=== PATIENT | female | born 1940 | race Two or more races ===

== ENCOUNTER 2020-03-02 19:13 | Emergency (ER) | payer MEDICARE, MEDICAID | END 2020-03-02 19:31 | disposition left against medical advice (07) | LOC: ER 19:14 | DX: M79.672 Pain in left foot (principal); Z53.21 Procedure and treatment not carried out due to patient leaving prior to being seen by health care provider ==

== ENCOUNTER 2022-02-18 18:17 | Emergency (ER) | payer MEDICARE, MEDICAID ==
[~2022-02-18] VITALS: Ht 154.9 cm; Wt 56.2 kg
[2022-02-18 18:39] VITALS: BP 195/95
[2022-02-18] MEDS ORDERED: SODIUM CHLORIDE 0.9% 1,000 ML IV ONE (20:00)
[2022-02-18] MEDS ORDERED: DONNATAL 5ml ORAL Elix (BELLADONNA ALK-PHENOBARB) PO ONE (20:15)
[2022-02-18] MEDS ORDERED: LIDOCAINE VISCOUS 2% 15ML UD PO ONE (20:15)
[2022-02-18] MEDS ORDERED: ALUM & MAG HYDROX-SIMETH LIQ(MAALOX) 30 ML PO ONE (20:15)
[2022-02-18 20:31] LABS: Basophils # (auto) 0.1 10 ^3/uL (0-0.2); Basophils % (auto) 0.7 % (0.0-2.0); Eosinophils # (auto) 0.7 10 ^3/uL (0-0.8); Hematocrit 31.2 % (36.0-46.0); Hemoglobin 10.5 g/dL (12.2-16.2); Lymphocytes # (auto) 2.5 10 ^3/uL (0.4-5.4); Lymphocytes % (auto) 33.8 % (10.0-50.0); Mean Corpuscular Hemoglobin 31.3 pg (28.0-32.0); Mean Corpuscular Hgb Conc. 33.5 g/dL (32.0-36.0); Mean Corpuscular Volume 93.3 fL (80.0-100.0); Monocytes # (auto) 0.6 10 ^3/uL (0-1.3); Monocytes % (auto) 8.2 % (0.0-12.0); Neutrophils # (auto) 3.6 10 ^3/uL (1.6-8.6); Neutrophils % (auto) 48.3 % (37.0-80.0); Red Blood Cells 3.35 10^6/uL (4.0-5.20); Red Cell Distribution Width 13.5 % (11.8-14.3); White Blood Cell 7.5 10^3/uL (4.4-10.8)
[2022-02-18 20:32] LABS: Urine Bacteria NONE SEEN /hpf (None Seen); Urine Blood Negative /uL (Negative); Urine Specific Gravity 1.016 (1.001-1.035); Urine WBC 1 /hpf (0 - 5)
[2022-02-18] MEDS ORDERED: IOHEXOL 350 MG/ML 100ML IJ ONE (20:33)
[2022-02-18 20:50] LABS: Albumin 3.8 g/dL (3.4-5.0); Calcium 9.1 mg/dL (8.5-10.1); Potassium 4.7 mmol/L (3.5-5.1)
[2022-02-18 20:54] LABS: Bilirubin, Total 0.3 mg/dL (0.2-1.0); Total Protein 7.6 g/dL (6.4-8.2)
[2022-02-18] MEDS ORDERED: FAMO-161 PO (22:28)
== END 2022-02-18 23:39 | disposition home or self-care (01) ==
LOC: ER 18:17
DX: R10.11 Right upper quadrant pain (principal)
CPT/HCPCS: 36415; 74176; 76705; 80053; 81001; 82150; 83605; 83690; 85025; 93005; 99285; Q9967

== ENCOUNTER 2023-02-12 12:06 | Emergency (ER) | payer MEDICARE, MEDICAID ==
[~2023-02-12] VITALS: Ht 162.6 cm; Wt 54.1 kg
[~2023-02-12 12:06] MED LIST: FAMO-161 PO
[2023-02-12] MEDS ORDERED: cloNIDine HCL 0.1 MG TAB PO ONE (12:15)
[2023-02-12 13:30] LABS: Basophils # (auto) 0.1 10 ^3/uL (0-0.2); Basophils % (auto) 0.9 % (0.0-2.0); Eosinophils # (auto) 0.4 10 ^3/uL (0-0.8); Hematocrit 32.7 % (36.0-46.0); Hemoglobin 10.8 g/dL (12.2-16.2); Lymphocytes # (auto) 2.9 10 ^3/uL (0.4-5.4); Lymphocytes % (auto) 34.5 % (10.0-50.0); Mean Corpuscular Hemoglobin 29.8 pg (28.0-32.0); Mean Corpuscular Hgb Conc. 32.9 g/dL (32.0-36.0); Mean Corpuscular Volume 90.5 fL (80.0-100.0); Monocytes # (auto) 0.8 10 ^3/uL (0-1.3); Monocytes % (auto) 9.3 % (0.0-12.0); Neutrophils # (auto) 4.2 10 ^3/uL (1.6-8.6); Neutrophils % (auto) 50.3 % (37.0-80.0); Nucleated Red Blood Cells % 0.1 %; Red Blood Cells 3.61 10^6/uL (4.0-5.20); Red Cell Distribution Width 14.8 % (11.8-14.3); White Blood Cell 8.4 10^3/uL (4.4-10.8)
[2023-02-12 13:49] LABS: Albumin 3.8 g/dL (3.4-5.0); BUN/Creatinine Ratio 17.7 (10.0-20.0); Calcium 8.9 mg/dL (8.5-10.1); Potassium 4.3 mmol/L (3.5-5.1)
[2023-02-12 13:51] LABS: Bilirubin, Total 0.4 mg/dL (0.2-1.0); Total Protein 6.9 g/dL (6.4-8.2)
[2023-02-12 14:58] VITALS: BP 122/63
[2023-02-12] MEDS ORDERED: ENOXAPARIN SOD 60 MG/0.6 ML SYRINGE SC ONE (17:00)
[2023-02-12] MEDS ORDERED: hydrALAZINE HCL 20 MG/ML VL IV PRN (22:30)
[2023-02-12] MEDS ORDERED: ACETAMINOPHEN 325 MG TAB PO PRN (22:30)
[2023-02-12] MEDS ORDERED: ONDANSETRON HCL 4 MG/2 ML VIAL IV PRN (22:30)
[2023-02-12] MEDS ORDERED: DOCUSATE SOD 100 MG CAP PO PRN (22:30)
[2023-02-12] MEDS ORDERED: SOD CHL 0.45% 1,000 ML IV SCH (22:30)
[2023-02-12] MEDS ORDERED: HYDROcodone-ACET 5/325MG TAB PO PRN (22:30)
[2023-02-13] MEDS ORDERED: ASPirin 81 mg TAB PO SCH (10:00)
[2023-02-13] MEDS ORDERED: ATORVASTATIN 20 MG TAB PO SCH (22:00)
== END 2023-02-13 00:51 | disposition home or self-care (01) ==
LOC: ER 12:06
DX: I24.9 Acute ischemic heart disease, unspecified (principal); I10 Essential (primary) hypertension; E11.9 Type 2 diabetes mellitus without complications
CPT/HCPCS: 36415; 80053; 84484; 85025; 99291

== ENCOUNTER 2024-05-17 17:55 | Emergency (ER) | payer MEDICARE, MEDICAID ==
[~2024-05-17] VITALS: Ht 152.4 cm; Wt 59.0 kg
[2024-05-17] MEDS ORDERED: BACDST PO (18:25)
[2024-05-17 22:20] VITALS: BP 139/51; PULSE 75; RESP 18; TEMP 98.3; O2SAT 93
[2024-05-17] MEDS: SULFAMETHOX W/TRIMETH(800/160MG) DS TAB PO ONE (22:22)
== END 2024-05-17 22:57 | disposition home or self-care (01) ==
LOC: ER 17:55
DX: L03.032 Cellulitis of left toe (principal); M19.90 Unspecified osteoarthritis, unspecified site; E78.5 Hyperlipidemia, unspecified; I10 Essential (primary) hypertension

== ENCOUNTER 2024-05-20 12:04 | Inpatient (IN) | payer MEDICARE, MEDICAID ==
[~2024-05-20] VITALS: Ht 152.4 cm; Wt 52.5 kg
[~2024-05-20 12:04] MED LIST changes: +BACDST PO
[2024-05-20 13:34] LABS: Basophils # (auto) 0 10 ^3/uL (0-0.2); Basophils % (auto) 0.3 % (0.0-2.0); Eosinophils # (auto) 0.1 10 ^3/uL (0-0.8); Eosinophils % (auto) 0.9 % (0.0-7.0); Hematocrit 28.1 % (36.0-46.0); Hemoglobin 9.3 g/dL (12.2-16.2); Lymphocytes # (auto) 1.1 10 ^3/uL (0.4-5.4); Lymphocytes % (auto) 7.3 % (10.0-50.0); Mean Corpuscular Hemoglobin 31.1 pg (28.0-32.0); Mean Corpuscular Hgb Conc. 33.1 g/dL (32.0-36.0); Monocytes # (auto) 1.2 10 ^3/uL (0-1.3); Monocytes % (auto) 8.2 % (0.0-12.0); Neutrophils # (auto) 12.4 10 ^3/uL (1.6-8.6); Neutrophils % (auto) 83.3 % (37.0-80.0); Nucleated Red Blood Cells % 0.1 %; Red Blood Cells 2.99 10^6/uL (4.0-5.20); Red Cell Distribution Width 13.6 % (11.8-14.3); White Blood Cell 14.9 10^3/uL (4.4-10.8)
[2024-05-20] MEDS: SODIUM CHLORIDE 0.9% 1,000 ML IV ONE (13:50)
[2024-05-20] MEDS: ONDANSETRON HCL 4 MG/2 ML VIAL IV ONE (13:56)
[2024-05-20 14:06] VITALS: PULSE 65; RESP 14; O2SAT 95
[2024-05-20 14:23] LABS: Alanine Aminotransferase 13 U/L (7-40); Albumin 4.2 g/dL (3.2-4.8); Alkaline Phosphatase 87 U/L (46-116); Anion Gap 5 (5-15); Aspartate Aminotransferase 21 U/L (13-40); BUN/Creatinine Ratio 15.7 (10.0-20.0); Bilirubin, Total 0.3 mg/dL (0.2-1.0); Blood Urea Nitrogen 32 mg/dL (9-23); Calcium 9.1 mg/dL (8.7-10.4); Carbon Dioxide 20 mmol/L (20-30); Chloride 109 mmol/L (98-107); Glucose 107 mg/dL (74-106); Sodium 134 mmol/L (136-145); Total Protein 6.5 g/dL (5.7-8.2)
[2024-05-20] MEDS: ALBUTEROL SULF 2.5 MG/0.5ML(0.5%) NEB SOLN NEB ONE (15:02)
[2024-05-20 15:15] VITALS: PULSE 82; RESP 13; O2SAT 93
[2024-05-20] MEDS: FUROSEMIDE 20 MG/2 ML VIAL IV ONE (15:38)
[2024-05-20] MEDS: DEXTROSE (50%) 50ML SYRG IV ONE (15:39)
[2024-05-20] MEDS: InsuLIN REG 1unit/0.01ml Soln (100units/ml) IV ONE (15:44)
[2024-05-20] MEDS: ASPirin 81 mg TAB PO ONE (16:09)
[2024-05-20] MEDS: NITROGLYCERIN 0.4 MG SL TAB SL ONE (16:10)
[2024-05-20] MEDS ORDERED: MORPHINE SULFATE INJ 2 MG/ml SYRG IV PRN ×3 (17:00→17:15)
[2024-05-20] MEDS ORDERED: DEXTROSE (50%) 50ML SYRG IV PRN (17:00)
[2024-05-20] MEDS ORDERED: DOCUSATE SOD 100 MG CAP PO PRN ×2 (17:00→17:15)
[2024-05-20] MEDS ORDERED: PANTOPRAZOLE 40 MG/10 ML VIAL INJ IV ONE (17:00)
[2024-05-20] MEDS ORDERED: SODIUM CHLORIDE 0.9% 1,000 ML IV SCH (17:00)
[2024-05-20] MEDS ORDERED: PIPERACILLIN-TAZOB 3.375GM 100 ML IV ONE (17:00)
[2024-05-20] MEDS ORDERED: ENOXAPARIN SOD 40 MG/0.4 ML SYRINGE SC SCH ×2 (17:00→17:15)
[2024-05-20] MEDS ORDERED: ONDANSETRON HCL 4 MG/2 ML VIAL IV PRN (17:00)
[2024-05-20] MEDS ORDERED: NITROGLYCERIN 0.4 MG SL TAB SL PRN ×2 (17:00→17:15)
[2024-05-20] MEDS ORDERED: InsuLIN REG 1unit/0.01ml Soln (100units/ml) SC SCH (18:00)
[2024-05-20] MEDS: InsuLIN REG 1unit/0.01ml Soln (100units/ml) SC SCH (18:00)
[2024-05-20] MEDS ORDERED: PIPERACILLIN-TAZOB 3.375GM 100 ML IV SCH (18:00)
[2024-05-20] MEDS ORDERED: ACCU-CHEK COMFORT CURVE STRIP VI SCH (18:00)
[2024-05-20] MEDS: PIPERACILLIN-TAZOB 3.375GM 100 ML IV ONE (18:21)
[2024-05-20] MEDS: PANTOPRAZOLE 40 MG/10 ML VIAL INJ IV ONE (18:21)
[2024-05-20] MEDS: ACCU-CHEK COMFORT CURVE STRIP VI SCH (18:21)
[2024-05-20] MEDS: SODIUM CHLORIDE 0.9% 1,000 ML IV SCH (18:21)
[2024-05-20 19:18] LABS: Potassium 4.3 mmol/L (3.5-5.1)
[2024-05-20 19:25] LABS: Magnesium 2.1 mg/dL (1.6-2.6)
[2024-05-20 19:26] LABS: % Iron Saturation 7.9 % (15-50); Phosphorus 3.5 mg/dL (2.4-5.1)
[2024-05-20 19:36] LABS: INR 0.94 (0.9-1.15)
[2024-05-20 19:54] LABS: Folate (Folic Acid) 8.74 ng/mL (>5.38)
[2024-05-20 20:00] VITALS: PULSE 92
[2024-05-20 21:00] VITALS: BP 105/33; PULSE 88; RESP 17; TEMP 99.2; O2SAT 92
[2024-05-20] MEDS ORDERED: LEVO112T4 PO (22:48)
[2024-05-20] MEDS ORDERED: ALBUAER3 IN (22:48)
[2024-05-20] MEDS ORDERED: LOSA-535 PO (22:48)
[2024-05-21] VITALS (7 sets, daily range): BP systolic 125–144; BP diastolic 32–67; PULSE 69–77; RESP 16–18; TEMP 98.1–98.7; O2SAT 93–97
[2024-05-21] MEDS: PIPERACILLIN-TAZOB 3.375GM 100 ML IV SCH (05:26)
[2024-05-21 05:55] LABS: Basophils # (auto) 0 10 ^3/uL (0-0.2); Basophils % (auto) 0.2 % (0.0-2.0); Eosinophils # (auto) 0.2 10 ^3/uL (0-0.8)
[2024-05-21 05:59] LABS: Hematocrit 23.5 % (36.0-46.0); Hemoglobin 8.1 g/dL (12.2-16.2); Lymphocytes # (auto) 1.3 10 ^3/uL (0.4-5.4); Lymphocytes % (auto) 14.3 % (10.0-50.0); Mean Corpuscular Hemoglobin 32.2 pg (28.0-32.0); Mean Corpuscular Hgb Conc. 34.5 g/dL (32.0-36.0); Mean Corpuscular Volume 93.5 fL (80.0-100.0); Monocytes # (auto) 0.9 10 ^3/uL (0-1.3); Monocytes % (auto) 9.7 % (0.0-12.0); Neutrophils # (auto) 6.9 10 ^3/uL (1.6-8.6); Neutrophils % (auto) 73.8 % (37.0-80.0); Red Blood Cells 2.51 10^6/uL (4.0-5.20); Red Cell Distribution Width 13.4 % (11.8-14.3); White Blood Cell 9.3 10^3/uL (4.4-10.8)
[2024-05-21 06:14] LABS: Alanine Aminotransferase 11 U/L (7-40); Alkaline Phosphatase 78 U/L (46-116); Anion Gap 6 (5-15); Aspartate Aminotransferase 15 U/L (13-40); BUN/Creatinine Ratio 14.8 (10.0-20.0); Blood Urea Nitrogen 27 mg/dL (9-23); Calcium 8.6 mg/dL (8.7-10.4); Carbon Dioxide 21 mmol/L (20-30); Chloride 111 mmol/L (98-107); Glucose 82 mg/dL (74-106); Potassium 4.6 mmol/L (3.5-5.1); Sodium 138 mmol/L (136-145)
[2024-05-21 06:15] LABS: Albumin 3.7 g/dL (3.2-4.8)
[2024-05-21 06:16] LABS: Bilirubin, Total 0.3 mg/dL (0.2-1.0); Total Protein 5.7 g/dL (5.7-8.2)
[2024-05-21] MEDS ORDERED: PANTOPRAZOLE 40 MG/10 ML VIAL INJ IV SCH (10:00)
[2024-05-21] MEDS: PANTOPRAZOLE 40 MG/10 ML VIAL INJ IV SCH (10:10)
[2024-05-21] MEDS: ENOXAPARIN SOD 30 MG/0.3 ML SYRINGE SC SCH (10:11)
[2024-05-21] MEDS: ONDANSETRON HCL 4 MG/2 ML VIAL IV PRN (10:11)
[2024-05-21] MEDS: DEXTROSE (50%) 50ML SYRG IV PRN (17:57)
[2024-05-21] MEDS: D5W/SOD CHLO 0.9% 1,000 ML IV SCH (18:41)
[2024-05-21] MEDS ORDERED: DEXTROSE (50%) 50ML SYRG IV PRN (19:00)
[2024-05-21] MEDS: InsuLIN REG 1unit/0.01ml Soln (100units/ml) SC SCH (20:00)
[2024-05-21] MEDS: ACCU-CHEK COMFORT CURVE STRIP VI SCH (20:21)
[2024-05-21 23:52] LABS: Urine Bacteria None Seen /hpf (None Seen)
[2024-05-22] VITALS (7 sets, daily range): BP systolic 117–158; BP diastolic 49–66; PULSE 60–80; RESP 16–18; TEMP 98.1–99; O2SAT 97–99
[2024-05-22 00:01] LABS: Urine Blood Negative /uL (Negative); Urine Clarity Clear (Clear); Urine Color Light-Yellow (Yellow); Urine Protein, UAD TRACE (Negative); Urine Specific Gravity 1.016 (1.001-1.035); Urine Urobilinogen Normal (Negative); Urine WBC <1 /hpf (0 - 5)
[2024-05-22 00:12] LABS: Creatinine, Urine 65.63 mg/dL (30.0-125.0)
[2024-05-22 02:45] LABS: Protein, Urine 31.8 mg/dL (0.0-11.9)
[2024-05-22 06:19] LABS: Chloride 114 mmol/L (98-107); Potassium 4.2 mmol/L (3.5-5.1); Sodium 140 mmol/L (136-145)
[2024-05-22 06:20] LABS: Anion Gap 6 (5-15); Carbon Dioxide 20 mmol/L (20-30)
[2024-05-22 06:21] LABS: Calcium 8.6 mg/dL (8.7-10.4)
[2024-05-22 06:25] LABS: BUN/Creatinine Ratio 13.5 (10.0-20.0); Blood Urea Nitrogen 19 mg/dL (9-23); Glucose 93 mg/dL (74-106)
[2024-05-22] MEDS: MORPHINE SULFATE INJ 2 MG/ml SYRG IV PRN (21:40)
[2024-05-23] VITALS (7 sets, daily range): BP systolic 110–156; BP diastolic 38–62; PULSE 62–84; RESP 16–21; TEMP 36.7; O2SAT 96–100
[2024-05-23 06:48] LABS: Eosinophils # (auto) 0.6 10 ^3/uL (0-0.8); Hematocrit 24.1 % (36.0-46.0); Monocytes # (auto) 0.6 10 ^3/uL (0-1.3); Neutrophils # (auto) 3.4 10 ^3/uL (1.6-8.6); Nucleated Red Blood Cells % 0.1 %; Red Blood Cells 2.58 10^6/uL (4.0-5.20)
[2024-05-23 06:50] LABS: Basophils # (auto) 0.1 10 ^3/uL (0-0.2); Eosinophils % (auto) 10.9 % (0.0-7.0); Hemoglobin 8.4 g/dL (12.2-16.2); Lymphocytes # (auto) 1.2 10 ^3/uL (0.4-5.4); Lymphocytes % (auto) 20.9 % (10.0-50.0); Mean Corpuscular Hemoglobin 32.5 pg (28.0-32.0); Mean Corpuscular Hgb Conc. 34.8 g/dL (32.0-36.0); Mean Corpuscular Volume 93.5 fL (80.0-100.0); Monocytes % (auto) 10.1 % (0.0-12.0); Neutrophils % (auto) 57.1 % (37.0-80.0); Red Cell Distribution Width 13.2 % (11.8-14.3); White Blood Cell 5.9 10^3/uL (4.4-10.8)
[2024-05-23 06:56] LABS: Anion Gap 8 (5-15); Carbon Dioxide 18 mmol/L (20-30); Chloride 113 mmol/L (98-107); Potassium 3.9 mmol/L (3.5-5.1); Sodium 139 mmol/L (136-145)
[2024-05-23 06:57] LABS: Calcium 8.6 mg/dL (8.7-10.4)
[2024-05-23 07:02] LABS: BUN/Creatinine Ratio 8.7 (10.0-20.0); Blood Urea Nitrogen 10 mg/dL (9-23); Glucose 91 mg/dL (74-106)
[2024-05-23] MEDS ORDERED: LEVO500T91 PO (11:37)
== END 2024-05-23 17:30 | disposition home or self-care (01) ==
LOC: ER 12:04 → OVERFLOW 16:59 → CENTRAL 19:45
PROVIDERS: ADMIT Nurse Practitioner Family; ATTEND Internal Medicine
DX: K80.00 Calculus of gallbladder with acute cholecystitis without obstruction (principal); N17.0 Acute kidney failure with tubular necrosis; I21.A1 Myocardial infarction type 2; E87.5 Hyperkalemia; I12.9 Hypertensive chronic kidney disease with stage 1 through stage 4 chronic kidney disease, or unspecified chronic kidney disease; D64.9 Anemia, unspecified; E03.9 Hypothyroidism, unspecified; E78.5 Hyperlipidemia, unspecified; D72.829 Elevated white blood cell count, unspecified; N18.32 Chronic kidney disease, stage 3b; L60.8 Other nail disorders; F10.239 Alcohol dependence with withdrawal, unspecified
CPT/HCPCS: 36415; 74176; 76705; 80048; 80053; 81001; 82570; 82607; 82728; 82746; 82962; 83540; 83550; 83605; 83615; 83735; 84100; 84132; 84156; 84300; 84484; 85025; 85045; 85610; 93005; 93306; 93926; 93971; 94640; 96361; 96365; 96375; G0378; J1815; J2405; J2470; J2543; J7042

== ENCOUNTER 2024-06-18 11:24 | Inpatient (IN) | payer MEDICARE, MEDICAID ==
[~2024-06-18] VITALS: Ht 149.9 cm; Wt 55.8 kg
[~2024-06-18 11:24] MED LIST changes: +ALBUAER3 IN; -BACDST PO; +LEVO112T4 PO; +LEVO500T91 PO; +LOSA-535 PO
[2024-06-18 12:47] LABS: Urine Bacteria FEW /hpf (None Seen); Urine Blood Negative /uL (Negative); Urine Clarity Clear (Clear); Urine Protein, UAD Negative (Negative); Urine Specific Gravity 1.006 (1.001-1.035); Urine Sperm PRESENT /hpf (None Seen); Urine Urobilinogen Normal (Negative); Urine WBC <1 /hpf (0 - 5); Urine pH 5.5 (5.0-9.0)
[2024-06-18 12:48] LABS: Basophils # (auto) 0.1 10 ^3/uL (0-0.2); Eosinophils # (auto) 0.5 10 ^3/uL (0-0.8); Eosinophils % (auto) 8.4 % (0.0-7.0); Hematocrit 33.9 % (36.0-46.0); Hemoglobin 11.1 g/dL (12.2-16.2); Lymphocytes # (auto) 2.3 10 ^3/uL (0.4-5.4); Lymphocytes % (auto) 36.7 % (10.0-50.0); Mean Corpuscular Hemoglobin 30.5 pg (28.0-32.0); Mean Corpuscular Hgb Conc. 32.7 g/dL (32.0-36.0); Mean Corpuscular Volume 93.3 fL (80.0-100.0); Monocytes # (auto) 0.6 10 ^3/uL (0-1.3); Monocytes % (auto) 10.1 % (0.0-12.0); Neutrophils # (auto) 2.8 10 ^3/uL (1.6-8.6); Neutrophils % (auto) 43.8 % (37.0-80.0); Platelet Count (auto) 218 10^3/uL (140-450); Red Blood Cells 3.63 10^6/uL (4.0-5.20); Red Cell Distribution Width 12.8 % (11.8-14.3); White Blood Cell 6.4 10^3/uL (4.4-10.8)
[2024-06-18 12:48] LABS: Urine Color Straw (Yellow)
[2024-06-18 13:10] LABS: Albumin 4.6 g/dL (3.2-4.8); Alkaline Phosphatase 94 U/L (46-116); Anion Gap 4 (5-15); Aspartate Aminotransferase 18 U/L (13-40); BUN/Creatinine Ratio 19.5 (10.0-20.0); Bilirubin, Total 0.4 mg/dL (0.2-1.0); Blood Urea Nitrogen 32 mg/dL (9-23); Calcium 9.5 mg/dL (8.7-10.4); Carbon Dioxide 24 mmol/L (20-30); Chloride 107 mmol/L (98-107); Glucose 95 mg/dL (74-106)
[2024-06-18 13:11] LABS: Total Protein 7.2 g/dL (5.7-8.2)
[2024-06-18 13:17] LABS: Alanine Aminotransferase < 9 U/L (7-40); Potassium 5.6 mmol/L (3.5-5.1); Sodium 135 mmol/L (136-145)
[2024-06-18] MEDS: SODIUM BICARB 8.4% 50Meq/50ml SYR INJ IV ONE (14:30)
[2024-06-18] MEDS: ALBUTEROL SULF 2.5 MG/0.5ML(0.5%) NEB SOLN NEB ONE (14:46)
[2024-06-18] MEDS: SODIUM CHLORIDE 0.9% 500 ML IV ONE (14:57)
[2024-06-18] MEDS: SODIUM ZIRCONIUM CYCL 10 GM PAK PO ONE (15:00)
[2024-06-18] MEDS ORDERED: ONDANSETRON HCL 4 MG/2 ML VIAL IV PRN (15:00)
[2024-06-18] MEDS ORDERED: MORPHINE SULFATE INJ 2 MG/ml SYRG IV PRN (15:00)
[2024-06-18] MEDS ORDERED: DOCUSATE SOD 100 MG CAP PO PRN (15:00)
[2024-06-18 15:41] LABS: Magnesium 2.5 mg/dL (1.6-2.6)
[2024-06-18 15:42] LABS: Phosphorus 4.7 mg/dL (2.4-5.1)
[2024-06-18] MEDS: SODIUM CHLORIDE 0.9% 1,000 ML IV SCH (15:43)
[2024-06-18] MEDS: cefTRIAXone 1GM/50ML D5W 50 ML IV ONE (16:10)
[2024-06-18] MEDS ORDERED: NITROGLYCERIN 0.4 MG SL TAB SL PRN (16:15)
[2024-06-18] MEDS: MEGESTROL ACET 400MG/10ML ORAL SUSP PO ONE (16:15)
[2024-06-18 20:00] VITALS: PULSE 62; RESP 15; O2SAT 96
[2024-06-18] MEDS: MEGESTROL ACET 400MG/10ML ORAL SUSP PO SCH (22:00)
[2024-06-18] MEDS: MELATONIN 5 MG TAB PO ONE (22:00)
[2024-06-19 03:07] VITALS: BP 165/69; PULSE 97; RESP 16; TEMP 97.6; O2SAT 97
[2024-06-19 05:00] VITALS: BP 145/51; PULSE 68; RESP 17; TEMP 97.8; O2SAT 96
[2024-06-19] MEDS: LEVOTHYROXINE SODIUM 112 MCG TAB PO SCH (06:31)
[2024-06-19 07:32] LABS: Basophils # (auto) 0 10 ^3/uL (0-0.2); Basophils % (auto) 0.9 % (0.0-2.0); Eosinophils # (auto) 0.4 10 ^3/uL (0-0.8); Eosinophils % (auto) 7.7 % (0.0-7.0); Hematocrit 28.8 % (36.0-46.0); Hemoglobin 9.4 g/dL (12.2-16.2); Lymphocytes # (auto) 1.8 10 ^3/uL (0.4-5.4); Lymphocytes % (auto) 33.6 % (10.0-50.0); Mean Corpuscular Hemoglobin 30.9 pg (28.0-32.0); Mean Corpuscular Hgb Conc. 32.6 g/dL (32.0-36.0); Mean Corpuscular Volume 94.8 fL (80.0-100.0); Monocytes # (auto) 0.5 10 ^3/uL (0-1.3); Monocytes % (auto) 8.5 % (0.0-12.0); Neutrophils # (auto) 2.6 10 ^3/uL (1.6-8.6); Neutrophils % (auto) 49.3 % (37.0-80.0); Nucleated Red Blood Cells % 0.1 %; Platelet Count (auto) 159 10^3/uL (140-450); Red Blood Cells 3.04 10^6/uL (4.0-5.20); White Blood Cell 5.3 10^3/uL (4.4-10.8)
[2024-06-19 08:17] LABS: Alkaline Phosphatase 75 U/L (46-116); Anion Gap 4 (5-15); Aspartate Aminotransferase 16 U/L (13-40); BUN/Creatinine Ratio 16.3 (10.0-20.0); Bilirubin, Total 0.3 mg/dL (0.2-1.0); Blood Urea Nitrogen 23 mg/dL (9-23); Calcium 8.8 mg/dL (8.7-10.4); Carbon Dioxide 22 mmol/L (20-30); Chloride 112 mmol/L (98-107); Glucose 88 mg/dL (74-106); Potassium 4.4 mmol/L (3.5-5.1); Sodium 138 mmol/L (136-145); Total Protein 6.5 g/dL (5.7-8.2)
[2024-06-19 08:19] LABS: Alanine Aminotransferase < 9 U/L (7-40)
[2024-06-19] MEDS: cefTRIAXone 1GM/50ML D5W 50 ML IV SCH (08:58)
[2024-06-19 09:00] VITALS: BP 155/49; PULSE 68; RESP 18; TEMP 98.2; O2SAT 95
[2024-06-19] MEDS ORDERED: FAMOTIDINE 20 MG TAB PO SCH (10:00)
[2024-06-19] MEDS: FAMOTIDINE 20 MG TAB PO SCH (11:10)
[2024-06-19] MEDS: LOSARTAN POTASSIUM 50 MG TAB PO SCH (11:11)
[2024-06-19 14:46] VITALS: BP 146/59; PULSE 62; RESP 18; TEMP 98.7; O2SAT 98
[2024-06-19 15:07] LABS: Free T4 (Free Thyroxine) 1.24 ng/dL (0.89-1.76)
[2024-06-19] MEDS: amLODIPine BESYLATE 5 MG TAB PO ONE (16:49)
[2024-06-19 16:58] VITALS: BP 178/57; PULSE 66; RESP 20; TEMP 98.3; O2SAT 97
[2024-06-19] MEDS ORDERED: hydrALAZINE HCL 20 MG/ML VL IV PRN (19:00)
[2024-06-19 19:20] LABS: Triglycerides 112 mg/dL (< 150)
[2024-06-19 19:21] LABS: LDL Cholesterol 143 mg/dL (< 100)
[2024-06-19 19:22] LABS: Cholesterol 198 mg/dL (< 200); HDL Cholesterol 34 mg/dL (40-59)
[2024-06-19] MEDS: hydrALAZINE HCL 10 MG TAB PO ONE (20:21)
[2024-06-19 21:00] VITALS: BP 148/53; PULSE 66; RESP 18; TEMP 98.1; O2SAT 97
[2024-06-19] MEDS: MELATONIN 5 MG TAB PO SCH (21:43)
[2024-06-19] MEDS: ENOXAPARIN SOD 30 MG/0.3 ML SYRINGE SC ONE (21:45)
[2024-06-19] MEDS: hydrALAZINE HCL 10 MG TAB PO SCH (23:49)
[2024-06-20] VITALS (8 sets, daily range): BP systolic 123–169; BP diastolic 51–78; PULSE 65–89; RESP 16–18; TEMP 97.6–98.8; O2SAT 96–98
[2024-06-20 06:33] LABS: Basophils # (auto) 0 10 ^3/uL (0-0.2); Basophils % (auto) 0.7 % (0.0-2.0); Eosinophils # (auto) 0.4 10 ^3/uL (0-0.8); Eosinophils % (auto) 7.8 % (0.0-7.0); Hematocrit 26.2 % (36.0-46.0); Hemoglobin 8.7 g/dL (12.2-16.2); Lymphocytes # (auto) 1.9 10 ^3/uL (0.4-5.4); Lymphocytes % (auto) 40.1 % (10.0-50.0); Mean Corpuscular Hemoglobin 31.1 pg (28.0-32.0); Mean Corpuscular Hgb Conc. 33.2 g/dL (32.0-36.0); Mean Corpuscular Volume 93.7 fL (80.0-100.0); Monocytes # (auto) 0.5 10 ^3/uL (0-1.3); Monocytes % (auto) 9.8 % (0.0-12.0); Neutrophils % (auto) 41.6 % (37.0-80.0); Platelet Count (auto) 147 10^3/uL (140-450); Red Cell Distribution Width 12.9 % (11.8-14.3); White Blood Cell 4.7 10^3/uL (4.4-10.8)
[2024-06-20 07:15] LABS: Albumin 3.7 g/dL (3.2-4.8); Alkaline Phosphatase 68 U/L (46-116); Anion Gap 2 (5-15); Aspartate Aminotransferase 15 U/L (13-40); BUN/Creatinine Ratio 13.8 (10.0-20.0); Bilirubin, Total 0.3 mg/dL (0.2-1.0); Blood Urea Nitrogen 17 mg/dL (9-23); Carbon Dioxide 23 mmol/L (20-30); Chloride 115 mmol/L (98-107); Glucose 88 mg/dL (74-106); Potassium 4.3 mmol/L (3.5-5.1); Sodium 140 mmol/L (136-145)
[2024-06-20 07:21] LABS: Alanine Aminotransferase < 9 U/L (7-40)
[2024-06-20] MEDS: amLODIPine BESYLATE 5 MG TAB PO SCH (10:12)
[2024-06-20] MEDS: ENOXAPARIN SOD 30 MG/0.3 ML SYRINGE SC SCH (10:13)
[2024-06-20 10:43] LABS: Free T3 1.83 pg/mL (2.3-4.2); T3 Total 0.67 ng/mL (0.60-1.81)
[2024-06-21] VITALS (7 sets, daily range): BP systolic 109–148; BP diastolic 57–63; PULSE 62–70; RESP 16–18; TEMP 97.5–98; O2SAT 95–97
[2024-06-21 07:13] LABS: Hematocrit 29.4 % (36.0-46.0); Hemoglobin 9.7 g/dL (12.2-16.2); Mean Corpuscular Hemoglobin 31.1 pg (28.0-32.0); Platelet Count (auto) 197 10^3/uL (140-450); Red Blood Cells 3.12 10^6/uL (4.0-5.20); Red Cell Distribution Width 13.4 % (11.8-14.3); White Blood Cell 11.1 10^3/uL (4.4-10.8)
[2024-06-21 07:17] LABS: Band Neutrophils % (manual) 0; Basophils % (manual) 0 (0.0-2.0); Blast Cells 0; Metamyelocytes % 0; Myelocytes % 0; Promyelocytes % 0; Reactive Lymphocytes 0
[2024-06-21 08:41] LABS: Eosinophils % (manual) 10 (0-7); Lymphocytes % (manual) 31 (10.0-50.0); Monocytes % (manual) 5 (0-12)
[2024-06-21 08:42] LABS: Platelet Estimate Adequate
[2024-06-21 09:35] LABS: Albumin 4.2 g/dL (3.2-4.8); Alkaline Phosphatase 70 U/L (46-116); Anion Gap 3 (5-15); Aspartate Aminotransferase 15 U/L (13-40); BUN/Creatinine Ratio 13.7 (10.0-20.0); Bilirubin, Total 0.3 mg/dL (0.2-1.0); Blood Urea Nitrogen 16 mg/dL (9-23); Calcium 9.5 mg/dL (8.7-10.4); Carbon Dioxide 22 mmol/L (20-30); Chloride 113 mmol/L (98-107); Glucose 88 mg/dL (74-106); Potassium 4.4 mmol/L (3.5-5.1); Sodium 138 mmol/L (136-145); Total Protein 7.1 g/dL (5.7-8.2)
[2024-06-21 09:36] LABS: Alanine Aminotransferase < 9 U/L (7-40)
[2024-06-21] MEDS ORDERED: AML5T PO (12:43)
[2024-06-21] MEDS ORDERED: LEVO100T8 PO (12:43)
[2024-06-21] MEDS ORDERED: HYDR-2792 PO (18:24)
== END 2024-06-21 18:37 | disposition home or self-care (01) | DRG 422 ==
LOC: ER 11:24 → OVERFLOW 16:11 → EAST 16:43
PROVIDERS: ADMIT Internal Medicine; ATTEND Internal Medicine
DX: E86.0 Dehydration (principal); N17.0 Acute kidney failure with tubular necrosis; G93.41 Metabolic encephalopathy; R62.7 Adult failure to thrive; E87.1 Hypo-osmolality and hyponatremia; N30.00 Acute cystitis without hematuria; E03.9 Hypothyroidism, unspecified; E78.5 Hyperlipidemia, unspecified; E87.5 Hyperkalemia; I10 Essential (primary) hypertension; G47.00 Insomnia, unspecified; E87.8 Other disorders of electrolyte and fluid balance, not elsewhere classified; D64.9 Anemia, unspecified; M19.09 Primary osteoarthritis, other specified site; Z96.652 Presence of left artificial knee joint; Z68.24 Body mass index [BMI] 24.0-24.9, adult
CPT/HCPCS: 36415; 70450; 71045; 80053; 80061; 81001; 82607; 82962; 83735; 84100; 84132; 84436; 84439; 84443; 84480; 84481; 84484; 85007; 85025; 85027; 93005; 94640; 96361; 96365; 97163; G0378